=== PATIENT | female | born 2000 | race Caucasian/White ===

== ENCOUNTER 2023-12-03 16:06 | Emergency (ER) | payer OTHER, SELFPAY ==
[2023-12-03 16:07] VITALS: BP 117/73
--- NOTE | 2023-12-03 16:14 | ED.GENMED ---
ED Provider Triage
<Samuel Caceres PA-C - Last Filed: 12/03/23 16:17>
-
Patient seen by provider in Triage?: Seen in Triage
23 year old currently 13 weeks along with lower abdominal pain, vaginal bleeding. She is passing clots at times. Las bleeding was yesterday. She has been seen by her OB at [facility]. She had an ultrasound at 10 weeks along which showed a
subchorionic hemorrhage and she received Rhogam then. She has had more bleeding since then and discomfort. She had no issues with her first . Denies fevers. No urinary symptoms. No lightheadedness or syncope.
Vital signs stable in triage. CBC CMP beta-hCG type and screen as well as a ultrasound were ordered
History of Present Illness
<Samuel Caceres PA-C - Last Filed: 12/03/23 16:17>
General
Chief Complaint: Problems
Time Seen by Provider: 12/03/23 18:05
<Sherice Marks MD - Last Filed: 12/03/23 21:06>
General
Source: patient
History of Present Illness
History of Present Illness:
23-year-old female, G2, P1, estimated to be approximately 13 weeks , noted to have a subchorionic hemorrhage at approximately 10 weeks and is Rh- and she received RhoGAM at that time. Since that visit, she reports continued mild bleeding
associated with lower abdominal cramping. She wants to get 'checked out', because she does not understand why she still having bleeding. Although she reported passing clots in the triage area she denies that at this time describes it as very mild.
She denies headache, dizziness, chest pain, shortness of breath, or other complaints.
Past History
<Sherice Marks MD - Last Filed: 12/03/23 21:06>
Past History
ED Past Medical History: None
ED Past Surgical History: None
Social History
Tobacco: Non-smoker
Alcohol: None
Drug: None
Phy Exam
<Sherice Marks MD - Last Filed: 12/03/23 21:06>
Physical Exam
Physical Exam:
GENERAL: Alert , in no apparent distress
EYE: pupils equal and reactive
NECK: Supple, no significant adenopathy.
ENT: o/p clr, mmm.
CARDIAC: Regular rate and rhythm .
LUNGS: Clear breath sounds bilaterally, no acute respiratory distress, no wheezes/rales/rhonchi
ABDOMEN: Soft, without focal tenderness, no r/g, no cvat
NEUROLOGICAL: Alert and oriented, no focal neuro deficits
SKIN: Warm and dry, skin intact.
MUSCULOSKELETAL: No edema, well perfused.
PSYCH: Normal and appropriate interaction.
Course
<Samuel Caceres PA-C - Last Filed: 12/03/23 16:17>
Orders/Labs/Results
Orders:
Orders
12/03/23 16:11
US Limited Urgent
Reason For Exam: bleeding, pain
12/03/23 16:18
Type+Screen Urgent
Beta HCG Quantitative Urgent
Is this a screen?: No
Complete Blood Count/With Diff Urgent
Comprehensive Metabolic Panel Urgent
12/03/23 16:24
Urinalysis Reflex To Culture Urgent
Date Specimen was Collected: 12/03/23
Time Specimen was Collected: 16:22
Urine Microscopic Reflex Cult Urgent
Urine Culture Urgent
FABIAN Source: U
Specimen Description:
Date Specimen was Collected: 12/03/23
Time Specimen was Collected: 16:22
12/03/23 16:30
ABO2 Urgent
BBK Wristband Number:
Associate notified that ABO2 has been ordered: [id number]
Date: 12/03/23
Time: 16:31
Shipping Inspector ID: [id number]
Abnormal Lab Results
12/03/23 12/03/23
16:18 16:24
RBC 3.85 L 10^6/uL
(4.20-5.40)
Hgb 11.6 L g/dL
(12.0-16.0)
Hct 32.8 L %
(37.0-47.0)
Creatinine 0.5 L mg/dL
(0.6-1.0)
Alkaline Phosphatase 32 L U/L
(38-126)
Ur Occult Blood Reflex 1+ A
(Negative)
Leukocyte Esterase Rfl 1+ A
(Negative)
Antibody Screen Positive A
(Negative)
12/03/23 16:18
12/03/23 16:18
Vital Signs
Initial and Last Documented VS:
Initial Vital Signs
Temp Pulse Resp BP Pulse Ox
98.8 F 67 16 117/73 94
12/03/23 16:07 12/03/23 16:07 12/03/23 16:07 12/03/23 16:07 12/03/23 16:07
Last Documented Vital Signs
Temp Pulse Resp BP Pulse Ox
98.5 F 95 18 101/63 98
12/03/23 18:28 12/03/23 20:45 12/03/23 20:45 12/03/23 20:45 12/03/23 20:45
<Sherice Marks MD - Last Filed: 12/03/23 21:06>
Orders/Labs/Results
Orders:
Orders
12/03/23 16:11
US Limited Urgent
Reason For Exam: bleeding, pain
12/03/23 16:18
Type+Screen Urgent
Beta HCG Quantitative Urgent
Is this a screen?: No
Complete Blood Count/With Diff Urgent
Comprehensive Metabolic Panel Urgent
12/03/23 16:24
Urinalysis Reflex To Culture Urgent
Date Specimen was Collected: 12/03/23
Time Specimen was Collected: 16:22
Urine Microscopic Reflex Cult Urgent
Urine Culture Urgent
FABIAN Source: U
Specimen Description:
Date Specimen was Collected: 12/03/23
Time Specimen was Collected: 16:22
12/03/23 16:30
ABO2 Urgent
BBK Wristband Number:
Associate notified that ABO2 has been ordered: [id number]
Date: 12/03/23
Time: 16:31
Shipping Inspector ID: [id number]
Abnormal Lab Results
12/03/23 12/03/23
16:18 16:24
RBC 3.85 L 10^6/uL
(4.20-5.40)
Hgb 11.6 L g/dL
(12.0-16.0)
Hct 32.8 L %
(37.0-47.0)
Creatinine 0.5 L mg/dL
(0.6-1.0)
Alkaline Phosphatase 32 L U/L
(38-126)
Ur Occult Blood Reflex 1+ A
(Negative)
Leukocyte Esterase Rfl 1+ A
(Negative)
Antibody Screen Positive A
(Negative)
12/03/23 16:18
12/03/23 16:18
Vital Signs
Initial and Last Documented VS:
Initial Vital Signs
Temp Pulse Resp BP Pulse Ox
98.8 F 67 16 117/73 94
12/03/23 16:07 12/03/23 16:07 12/03/23 16:07 12/03/23 16:07 12/03/23 16:07
Last Documented Vital Signs
Temp Pulse Resp BP Pulse Ox
98.5 F 95 18 101/63 98
12/03/23 18:28 12/03/23 20:45 12/03/23 20:45 12/03/23 20:45 12/03/23 20:45
Information
Weeks gestation: Weeks: (13)
Location: Location: ([facility])
<Sherice Marks MD - Last Filed: 12/03/23 21:06>
*Critical Care Note
Total Time (30-74mins, 75-104mins- exclusive of procedures): Not Applicable
<Sherice Marks MD - Last Filed: 12/03/23 21:06>
Update Note
Update Note:
Patient presents to the Emergency Department with __vaginal bleeding and lower abdominal cramping
Number and Complexity of Problems Addressed at the Encounter
� Chronic conditions affecting care:
� Acute Exacerbation and/or Progression of Chronic Illness:
� Differential Diagnosis includes: But not limited to subchorionic hemorrhage, impending/threatened AB, etc.
Amount and/or Complexity of Data to be Reviewed and Analyzed
� I performed an independent evaluation of and my interpretation is:
EKG:
CT:
Xrays:
Laboratory Studies: Rh-, beta 21,836, labs otherwise unremarkable
Other: Ultrasound live IUP at 13 weeks 6 days no mention of hemorrhage noted
� Review of other/old records reveals:
� Clinical information was obtained by an independent historian:
� Prescriptions/Medications Considered but not given:
� Further testing considered but not performed:
Risk of Complications and/or Morbidity or Mortality of Patient Management
� Social determinants of health affecting care:
� Discussion with other providers (PCP, Hospitalists, Consultants, etc):
� Escalation of care including admission/observation vs risk of discharge considered: Case discussed with on-call OB for [facility] Dr. Tirado, aware of history, physical, labs ultrasound. I particularly made mention that
patient is Rh-, understanding that she got RhoGAM within the last 3 weeks. He specifically does not recommend a repeat dose of RhoGAM. He notes that patient had a office visit today including an ultrasound and is due for an office visit tomorrow
with repeat ultrasound. No further recommendations for tonight, recommends patient see doctor tomorrow as scheduled.
ED Attending Note
<Samuel Caceres PA-C - Last Filed: 12/03/23 16:17>
-
Portions of this chart may have been created with voice recognition software.� Occasional wrong word or��sound alike� substitutions may have occurred due to the inherent limitations of voice recognition software.
Discharge Plan
Departure
Patient Disposition: Home (Routine Discharge)
Date of Disposition: 12/03/23
Time of Disposition: 19:49
Patient with high blood pressure during this ER visit?: No
Condition: Good
Discharge Problem:
, threatened
Instructions: Threatened Miscarriage (DC)
Referrals:
Jimmie Sims MD [Family Provider] -
Activity Restrictions/Additional Instructions:
PLEASE PROCEED TO YOUR OB APPT SCHEDULED TOMORROW. IF YOU DEVELOP INCREASING BLEEDING, FEVER, INCREASING PAIN, OR OTHER WORRISOME SIGNS, GO TO THE ER IMMEDIATELY!
Interventions
Interventions:
*Risk Screen - Suicide Last Done: 12/03/23 16:11
*General Assessment Last Done: 12/03/23 20:45
*Neglect/Abuse Screening Last Done: 12/03/23 16:11
*ED COVID-19 Vaccine History Last Done: 12/03/23 16:12
*Nursing Disposition Last Done: 12/03/23 20:45
ED-Female Genitourinary Assessment Last Done: 12/03/23 20:44
Discharge Date and Time
Discharge Date/Time: 12/03/23 20:47
Print Language: INDONESIAN
[2023-12-03 16:25] LABS: % Basophils 0.3 % (0-2); % Eosinophils 1.6 % (0-6); % Immature Granulocytes 0.5 % (0-0.5); % Lymphocytes 25.3 % (20.5-51.1); % Monocytes 7.6 % (1.7-9.3); % Neutrophils 64.7 % (42.2-75.2); Absolute Eosinophils 0.1 10^3/uL (0-0.7); Absolute Lymphocytes 1.6 10^3/uL (1.2-3.4); Absolute Monocytes 0.5 10^3/uL (0.1-0.6); Absolute Neutrophils 4.2 10^3/uL (1.4-6.5); Hematocrit 32.8 % (37.0-47.0); Hemoglobin 11.6 g/dL (12.0-16.0); Mean Corp Hgb Conc. 35.4 g/dL (33.0-37.0); Mean Corpuscular Hgb 30.1 pg (27.0-31.0); Mean Corpuscular Volume 85.2 fL (81.0-99.0); Mean Platelet Volume 9.7 fL (7.4-10.4); Nucleated Red Blood Cells % 0 %; Platelet Count 208 10^3/uL (130-400); Red Blood Cell Count 3.85 10^6/uL (4.20-5.40); Red Cell Dist. Width 11.9 % (11.5-14.5); White Blood Cell Count 6.4 10^3/uL (4.8-10.8)
[2023-12-03 16:40] LABS: Urine Albumin Negative (Neg - Trace); Urine Bilirubin Negative (Negative); Urine Character Clear (Clear); Urine Color Yellow; Urine Glucose Negative (Negative); Urine Ketone Negative (Negative); Urine Leukocyte 1+ (Negative); Urine Nitrite Negative (Negative); Urine Occult Blood 1+ (Negative); Urine Urobilinogen Negative (Neg - 1+)
[2023-12-03 16:44] LABS: ALT (SGPT) 16 U/L (0-35); AST (SGOT) 19 U/L (14-36); Alkaline Phosphatase 32 U/L (38-126); Blood Urea Nitrogen 10 mg/dl (7-17); Calcium 8.9 mg/dl (8.4-10.2); Carbon Dioxide 22 mmol/L (22-30); Chloride 104 mmol/L (98-107); Glucose 87 mg/dl (70-99); Potassium 4.1 mmol/L (3.5-5.1); Sodium 136 mmol/L (135-145); Total Bilirubin 0.3 mg/dl (0.2-1.3); Total Protein 6.3 g/dl (6.3-8.2); eGFR > 60.00
[2023-12-03 17:12] LABS: Urine Squamous Cell 16-20 /LPF (Few)
[2023-12-03 17:13] LABS: Urine Red Blood Cell 0-2 /HPF (0-2)
[2023-12-03 18:28] VITALS: BP 101/63
--- NOTE | 2023-12-03 18:47 | EDRN ---
Spoke to Dr. Marks about ABO2. Dr. Marks states order is not needed.
[2023-12-03 20:45] VITALS: BP 101/63
== END 2023-12-03 20:47 | disposition home or self-care (01) ==
LOC: EMR 16:06
PROVIDERS: Emergency Medicine; Physician Assistant; EMERGENCY PHYSICIAN Emergency Medicine; FAMILY PHYSICIAN Family Medicine
DX: O03.9 Complete or unspecified spontaneous abortion without complication (principal); Z3A.13 13 weeks gestation of pregnancy
CPT/HCPCS: 99284; 76815; 80053; 81003; 81015; 84702; 85025; 86850; 86870; 86900; 86901; 87086